=== PATIENT | male | born 1970 | race Two or more races ===

== ENCOUNTER 2025-01-17 22:54 | Emergency (ER) | payer SELFPAY ==
[~2025-01-17] VITALS: Ht 177.8 cm; Wt 100.3 kg
[2025-01-18 00:23] LABS: Urine Protein, UAD TRACE (Negative)
[2025-01-18] MEDS: ACETAMINOPHEN 500 MG TAB or CAP PO ONE (00:30)
[2025-01-18] MEDS: LIDOCAINE VISCOUS 2% 15ML UD PO ONE (00:30)
[2025-01-18] MEDS: MAALOX PLUS or MAALOX 30 ML PO ONE (00:30)
[2025-01-18 00:35] VITALS: O2SAT 97
[2025-01-18 00:41] LABS: Hematocrit 51.3 % (41.0-53.0); Hemoglobin 17.6 g/dL (13.5-17.5); Mean Corpuscular Hemoglobin 29.6 pg (28.0-32.0); Mean Corpuscular Volume 86.2 fL (80.0-100.0); Nucleated Red Blood Cells % 0.1 %
[2025-01-18 00:54] LABS: Albumin 4.7 g/dL (3.2-4.8); Anion Gap 9 (5-15); BUN/Creatinine Ratio 16.7 (10.0-20.0); Bilirubin, Total 1.1 mg/dL (0.2-1.0); Blood Urea Nitrogen 17 mg/dL (9-23); Calcium 9.5 mg/dL (8.7-10.4); Carbon Dioxide 30 mmol/L (20-31); Chloride 103 mmol/L (98-107); Potassium 3.8 mmol/L (3.5-5.1); Sodium 142 mmol/L (136-145); Total Protein 7.4 g/dL (5.7-8.2)
[2025-01-18 01:09] LABS: Lactic Acid w/Reflex 2.1 mmol/L (0.4-2.0)
[2025-01-18 01:10] LABS: Alanine Aminotransferase 198 U/L (7-40); Alkaline Phosphatase 118 U/L (46-116); Glucose 180 mg/dL (74-106); Lipase 65 U/L (12-53)
[2025-01-18] MEDS: SODIUM CHLORIDE 0.9% 500 ML IV ONE (01:41)
--- NOTE | 2025-01-18 01:50 | ED.PDOC ---
History of Present Illness HPI Comments 54-year-old male presents with chief complaint of abdominal pain. Patient endorses 3x hour history of epigastric abdominal pain, that began suddenly and unprovoked. Pain is an 8/10 in severity, with no prior history radiates, diffusely, throughout his entire abdomen. Is luis to full sensation and worse with breathing. Patient reports eating fish and popcorn as his most recent meal, is evening. He states states on not taking any pain medication prior to arrival. Sent injuries, travel, sick contact, or relevant GI history endorsed. Patient denies having any chest pain, shortness of breath, lightheadedness, nausea, vomiting, diarrhea, constipation, or further associated symptoms. Chief Complaint: Abdominal Pain Time Seen by MD: 23:50 Reviewed Notes: Nurses Notes, Medications, Allergies Allergies: Coded Allergies: NO KNOWN ALLERGIES (Unverified , 01/17/25) Information Source: Patient Mode of Arrival: Ambulatory Severity: Moderate Timing: Hours Duration: Since onset Prehospital treatment: None Review of Systems: REVIEW OF SYSTEMS: General: No fever, no chills, or fatigue HEENT: No sore throat, no earache, no congestion, no neck pain. Cardiac: No chest pain. No palpitations. Lungs: No shortness of breath, no cough. GI: Abdominal pain, no nausea, no vomiting, no diarrhea, no constipation : No dysuria, frequency, or urgency. No hematuria. Musculoskeletal: No joint pain , no joint swelling, no extremity edema. Skin: No rash, no itching. Neuro: No headache, no dizziness, no weakness Vital Signs Vital Signs Date Time Temp Pulse Resp B/P (MAP) Pulse Ox O2 Delivery O2 Flow Rate FiO2 01/18/25 04:05 98.3 85 16 140/72 (94) 96 98.3 01/18/25 01:34 Room Air 01/18/25 00:35 0 21 Physical Exam PHYSICAL EXAM: General: Awake, alert and oriented. No acute distress. Skin: Skin in warm, dry and intact. Appropriate color for ethnicity. HEENT: The head is normocephalic and atraumatic. Conjunctivae are clear without exudates or hemorrhage. Sclera is non-icteric. EOM are intact. No signs of nystagmus. Eyelids are normal in appearance without swelling or lesions. Oral mucosa is pink and moist Neck: The neck is supple with normal range of motion. No JVD. Cardiac: Heart rate and rhythm are normal. No murmurs, gallops, or rubs are auscultated. Respiratory: No signs of respiratory distress. Lung sounds are clear in all lobes bilaterally without rales, rhonchi, or wheezes. Abdominal: Epigastric tenderness. Remaining abdomen is soft, non-tender without distention, guarding or rigidity. Bowel sounds are present and normoactive in all four quadrants. No CVA tenderness. Extremities: Upper and lower extremities are atraumatic in appearance without deformity or edema. Neurological: The patient is awake, alert and oriented to person, place, and time with normal speech. Speech is clear. There is no facial asymmetry. Psychiatric: Appropriate mood and affect. Good judgement and insight. Past Medical History PAST MEDICAL HISTORY: DM, High Lipids Surgical History: Denies all surgeries Family History Family History: Unknown Social History Smoker: Non-Smoker Alcohol: Denies ETOH Use Drugs: Denies Drug Use Lives In: Home Was a procedure done? Was a procedure done?: No EKG EKG : Pulse Rate (adult): 79 [place]: Normal Cardiac Rhythm: NSR Block: None Hypertrophy: None ST: Normal Comments No STEMI Differential Dx Considerations may include: Differential diagnoses considered include: Abdominal aortic aneurysm, SC, esophageal rupture, intestinal obstruction, mesenteric ischemia, perforated viscus or solid organ rupture, CHF with hepatomegaly, pneumonia, abscess, appendicitis, biliary disease, diverticulitis, gastritis, gastroenteritis, hepatitis, hernia, inflammatory bowel disease, pancreatitis, peptic ulcer disease, urinary tract infection, ureteral colic, constipation, GERD, irritable syndrome, abdominal wall pain, nonspecific abdominal pain, herpes zoster, nephrolithiasis. X-Ray, Labs, Meds, VS Vital Signs Date Time Temp Pulse Resp B/P (MAP) Pulse Ox O2 Delivery O2 Flow Rate FiO2 01/18/25 04:05 98.3 85 16 140/72 (94) 96 98.3 01/18/25 01:52 79 01/18/25 01:34 89 20 96 Room Air 01/18/25 01:34 98.1 89 20 145/78 (100) 96 98.1 01/18/25 00:35 97 Room Air* 0 21 01/18/25 00:32 99.1 88 19 144/89 (107) 97 99.1 01/17/25 23:37 79 01/17/25 23:20 98.8 88 18 141/93 (109) 95 98.8 Lab Test 01/18/25 02:12 01/18/25 01:25 01/18/25 00:12 01/17/25 23:27 Range/Units Lactic Acid Level 1.5 2.1 *H 0.4-2.0 mmol/L Troponin I High Sensitivity < 3 L < 3 L </=54 ng/L White Blood Count 9.8 4.4-10.8 10^3/uL Red Blood Count 5.96 H 4.5-5.90 10^6/uL Hemoglobin 17.6 H 13.5-17.5 g/dL Hematocrit 51.3 41.0-53.0 % Mean Corpuscular Volume 86.2 80.0-100.0 fL Mean Corpuscular Hemoglobin 29.6 28.0-32.0 pg Mean Corpuscular Hemoglobin Concent 34.3 32.0-36.0 g/dL Red Cell Distribution Width 13.2 11.8-14.3 % Platelet Count 222 140-450 10^3/uL Mean Platelet Volume 8.4 6.9-10.8 fL Neutrophils (%) (Auto) 77.6 37.0-80.0 % Lymphocytes (%) (Auto) 13.4 10.0-50.0 % Monocytes (%) (Auto) 7.9 0.0-12.0 % Eosinophils (%) (Auto) 0.7 0.0-7.0 % Basophils (%) (Auto) 0.4 0.0-2.0 % Neutrophils # (Auto) 7.6 1.6-8.6 10 ^3/uL Lymphocytes # (Auto) 1.3 0.4-5.4 10 ^3/uL Monocytes # (Auto) 0.8 0-1.3 10 ^3/uL Eosinophils # (Auto) 0.1 0-0.8 10 ^3/uL Basophils # (Auto) 0 0-0.2 10 ^3/uL Nucleated Red Blood Cells 0.1 % Sodium Level 142 136-145 mmol/L Potassium Level 3.8 3.5-5.1 mmol/L Chloride Level 103 98-107 mmol/L Carbon Dioxide Level 30 20-31 mmol/L Anion Gap 9 5-15 Blood Urea Nitrogen 17 9-23 mg/dL Creatinine 1.02 0.700-1.30 mg/dL Glomerular Filtration Rate Calc 88 >90 mL/min BUN/Creatinine Ratio 16.7 10.0-20.0 Serum Glucose 180 H 74-106 mg/dL Calcium Level 9.5 8.7-10.4 mg/dL Total Bilirubin 1.1 H 0.2-1.0 mg/dL Aspartate Amino Transferase (AST) 252 H 13-40 U/L Alanine Aminotransferase (ALT) 198 H 7-40 U/L Alkaline Phosphatase 118 H 46-116 U/L Total Protein 7.4 5.7-8.2 g/dL Albumin 4.7 3.2-4.8 g/dL Lipase 65 H 12-53 U/L Urine Color Yellow Yellow Urine Clarity Clear Clear Urine pH 6.5 5.0-9.0 Urine Specific [place] 1.035 1.001-1.035 Urine Protein Trace H Negative Urine Ketones Negative Negative Urine Blood Negative Negative /uL Urine Nitrite Negative Negative Urine Bilirubin Negative Negative Urine Urobilinogen 8 H Negative mg/dL Urine Leukocyte Esterase Negative Negative /uL Urine RBC 2 0 - 3 /hpf Urine Microscopic WBC 1 0-3 /HPF Urine Squamous Epithelial Cells None seen <5 /hpf Urine Bacteria None seen None Seen /hpf Urine Glucose 4+ H Normal mg/dL Current Medications Medications (Trade) Dose Ordered Sig/Antonio Route Start Time Stop Time Status Last Admin Al Hydrox/Mg Hydrox/Simethicone (Maalox Plus) 30 ml ONCE ONCE PO 01/18/25 00:00 01/18/25 00:01 DC 01/18/25 00:30 Lidocaine HCl (Xylocaine 2% Viscous) 10 ml ONCE ONCE PO 01/18/25 00:00 01/18/25 00:01 DC 01/18/25 00:30 Acetaminophen (Tylenol Tablet Or Capsule) 1,000 mg ONCE ONCE PO 01/18/25 00:00 01/18/25 00:01 DC 01/18/25 00:30 Sodium Chloride 500 ml @ 500 mls/hr Q1H ONCE IV 01/18/25 01:30 01/18/25 02:29 DC 01/18/25 01:41 PATIENT: DAVIDSTACEY ACCT: [id number] UNIT: [id number] : 1970 LOC: ER ROOM / BED: / AGE / SEX: 54 / M ADM STATUS: REG ER SERVICE 0125 ORDERING PHYSICIAN: MARIELA GALINDO MD PROCEDURE(s): ABPLIV - CT AB PEL WITH IV CON ONLY REASON: epigastric Abdominal pain, elevated LFT ORDER NUMBER(s): [id number], ACCESSION NUMBER(s): [id number] Exam: CT CT AB PEL WITH IV CON ONLY History: epigastric Abdominal pain, elevated LFT COMPARISON: None Technique: Multidetector spiral CT of the abdomen and pelvis was performed from lung bases to pubic symphysis. Intravenous contrast was administered during this examination. Portal venous imaging was obtained. Axial, coronal and sagittal multiplanar reformats were performed by the technologist on a separate workstation. Radiation Dose : 1. Abdomen/Pelvis: CTDIvol 20.03 mGy, DLP 1243.58 mGy*cm. CONTRAST: Type of contrast: Omnipaque 300 Contrast injected: 100 ml Findings: Lung Bases: No acute or significant lung base finding. Normal heart size. No pleural or pericardial effusion. Liver: The liver is normal in size. Diffuse hepatic steatosis. No focal lesions. Normal hepatic vascular enhancement. Gallbladder and Biliary Tree: 2.5 cm peripherally calcified gallstone within the neck of the gallbladder. Spleen: Unremarkable Pancreas: The pancreas is normal in appearance without focal lesions or abnormal enhancement. Adrenal Glands: Unremarkable Kidneys: No evidence of nephrolithiasis or hydronephrosis. Mild multifocal bilateral renal cortical scarring. Bladder: Unremarkable Bowel: Small hiatal hernia. The stomach is grossly normal in appearance. Small bowel and colon are normal in caliber and distribution. The appendix is not visualized; however, no secondary findings of acute appendicitis identified. Ascites: Absent Lymphadenopathy: No mesenteric, retroperitoneal or periportal lymphadenopathy. Abdominal Wall and Mesentery: Unremarkable. Vasculature: The visualized abdominal aorta is normal in size and caliber. Abdominal and pelvic vessels demonstrate normal enhancement. Pelvic Organs: Unremarkable Musculoskeletal: No aggressive focal bony lesions, acute fractures or dislocation. Punctate sclerotic focus within the anterior right acetabulum likely represents a bone island. IMPRESSION: 1. Cholelithiasis. 2. Hepatomegaly. 3. Mild bilateral renal cortical scarring. Radiation optimization: All CT scans at this facility use at least one of these dose optimization techniques: automated exposure control mA and/or kV adjus tment per patient size (includes targeted exams where dose is matched to clinical indication) or iterative reconstruction. ATED BY: MAYURI MOSCOSO MD DICTATED DATE/TIME: 01/18/25331 SIGNED BY: MAYURI MOSCOSO MD SIGNED DATE/TIME: 01/18/25331 CC: Time of 1ST Reevaluation: 00:20 Reevaluation 1ST: Unchanged Patient Education/Counseling: Treatment, Need For Follow Up Family Education/Counseling: No Family Present SEPSIS Sepsis Screen Date sepsis recognized/suspect: Jan 18, 2025 Time Sepsis recognized/suspect: 35 Recent Procedure: No On Antibiotic Therapy: No Respiratory Rate >20: No Heart Rate >90: No Temp<36 C (96.8 F) or >38.3 C: No SBP <90 or MAP <65 mmHG: No New Acute Mental Status Change: No Is the patient on CPAP, BIPAP,: No Physician Orders Electrocardigram (01/18/25 00:55) Ct Ab Pel With Iv Con Only (01/18/25 01:25) Vital Signs Date Time Temp Pulse Resp B/P (MAP) Pulse Ox O2 Delivery O2 Flow Rate FiO2 01/18/25 04:05 98.3 85 16 140/72 (94) 96 98.3 01/18/25 01:52 79 01/18/25 01:34 89 20 96 Room Air 01/18/25 01:34 98.1 89 20 145/78 (100) 96 98.1 01/18/25 00:35 97 Room Air* 0 21 01/18/25 00:32 99.1 88 19 144/89 (107) 97 99.1 01/17/25 23:37 79 01/17/25 23:20 98.8 88 18 141/93 (109) 95 98.8 Laboratory Tests Test 01/18/25 00:12 01/18/25 02:12 Lactic Acid Level 2.1 mmol/L (0.4-2.0) *H 1.5 mmol/L (0.4-2.0) White Blood Count 9.8 10^3/uL (4.4-10.8) Departure 1 Departure Time of Disposition: 03:37 Impression: Primary Impression: Abdominal pain Additional Impressions: Cholelithiasis Elevated LFTs Disposition: 01 HOME / SELF CARE / HOMELESS Condition: Stable Additional Instructions: INSTRUCCIONES DE GRIFFIN DE Urgencias Instrucciones: Latasha atentamente todas las instrucciones proporcionadas en lior paquete. Hoy puede demostrar que tiene clculos biliares y que yves pruebas de funcin son anormales. Es muy importante que horace un seguimiento con el mdico de atencin primaria para chi evaluacin adicional y que regrese al departamento de emergencias si horton dolor empeora. Aunque le hayan dado el griffin del Departamento de Emergencias, esto no significa que tenga un "certificado de buena shelby". [] Hoy no se alvarado realizado ningn diagnstico definitivo para yves sntomas. Es posible que ests en proceso de desarrollar chi enfermedad grave. Es por eso que debe regresar al servicio de urgencias sin falta si presenta algn sntoma nuevo o que empeora (especialmente si yves sntomas incluyen dolor en el pecho, dificultad para respirar, dolor abdominal, fiebre, dolor de sheila, confusin, dificultad para sheldon o caminar). Tambin es muy importante que consulte a un mdico de atencin primaria dentro de los prximos 3 a 5 cortes para realizar un seguimiento. Si no puede conseguir chi siva, regrese al servicio de urgencias para chi nueva evaluacin. Clculos biliares: instrucciones de cuidado Descripcin general Ubicacin de la vescula biliar en el vientre con detalle de la vescula biliar con clculos biliares y conducto cstico bloqueado por clculo biliar. Los clculos biliares son piedras compuestas de colesterol y otras sustancias que se abram en la vescula biliar. La vescula biliar almacena la bilis, que ayuda al cuerpo a digerir los alimentos. Los clculos biliares tambin pueden formarse en el conducto biliar, el conducto que transporta la bilis desde la vescula biliar y el hgado hasta el intestino crenshaw. Los clculos biliares que impiden que la vescula se vace o se atascan en el conducto biliar pueden causar dolor e infeccin. A veces se forma un material espeso llamado "lodo" en lugar de clculos. Anon Raices puede causar los mismos problemas que los clculos biliares. Es posible que el mdico le haya recetado analgsicos. Es posible que necesite citas de seguimiento para realizar ms pruebas y recibir tratamiento. Si los problemas persisten, podra necesitar ciruga para extirparle la vescula biliar. El mdico lo alvarado examinado cuidadosamente, cleve podran surgir problemas ms adelante. Si nota algn problema o sntomas nuevos, busque atencin mdica de inmediato . El seguimiento es fundamental para horton tratamiento y seguridad. Asegrese de programar y acudir a todas yves citas, y llame a horton mdico si tiene algn problema. Anel es recomendable estar al tanto de los resultados de yves pruebas y llevar chi lista de los medicamentos que ema. Property Valuer puedes cuidarte en casa? Descansa hasta que te sientas mejor. Tenga cuidado con los medicamentos. Latasha y siga todas las instrucciones de la etiqueta. Si el mdico le recet un medicamento para el dolor, tmelo segn lo prescrito. Si no est tomando un analgsico recetado, pregntele a horton mdico si puede saúl nakita de venta yesenia. Evite los alimentos que causan sntomas, especialmente los grasosos. Estos pu speedy hacer que la vescula biliar se contraiga y causar dolor. Cundo debes pedir ayuda? Llame a horton mdico ahora o busque atencin mdica inmediata si: Ests vomitando. Tiene dolor abdominal nuevo o peor. Tienes fiebre. No puede evacuar heces ni gases. Preste atencin de cerca a los cambios en horton shelby y asegrese de comunicarse con horton mdico si tiene algn problema. Crditos para clculos biliares: Instrucciones de cuidado Actualizado al: 2023 Autor: Personal de [facility] Junta de revisin clnica Toda la educacin de [facility] es revisada por un equipo que incluye mdicos, enfermeras, profesionales avanzados, dietistas registrados y otros profesionales de la shelby. Pruebas de funcin heptica Descripcin general de la prueba Se utilizan algunos anlisis de mary para determinar si el hgado est daado o inflamado. Aunque estas pruebas ayudan al mdico a evaluar el funcionamiento del hgado, no pueden determinar si tiene hepatitis C. Pruebas que evalan la funcin heptica Horton mdico podra realizar pruebas para medir ciertas sustancias qumicas producidas por el hgado. Estas pruebas pueden ayudarle a evaluar el funcionamiento de horton hgado. Las pruebas pueden medir: Bilirrubina. Albmina. Protena srica total. Pruebas que detectan la inflamacin del hgado (estudios de enzimas hepticas) Horton hgado puede resultar daado si tiene niveles elevados de: Alanina aminotransferasa (ALT o SGPT). Aspartato aminotransferasa (AST o SGOT). Un nivel elevado de fosfatasa alcalina (FA) puede indicar un bloqueo de los conductos biliares. Por qu se hace Las pruebas de hgado se realizan cuando un historial mdico o un examen fsico sugieren que algo puede estar mal con horton hgado. Estas pruebas tambin pueden ayudar a diagnosticar infecciones. Por ejemplo, si las enzimas hepticas estn altas, se pueden realizar pruebas para determinar si tiene hepatitis. Si est tomando ciertos medicamentos, es posible que le realicen pruebas de hgado para verificar que el medicamento est funcionando o que no est daando horton hgado. Property Valuer prepararse En general, no es necesario hacer nada antes de esta prueba, a menos que horton mdico se lo indique. Property Valuer se hace Un profesional de la shelby utiliza chi aguja para saúl chi muestra de mary, generalmente del brazo. Resultados Normal Todos los niveles estn dentro del rango normal. Anormal [place]ita o ms niveles estn fuera del rango normal. Los resultados anormales en las pruebas de funcin heptica pueden indicar que el hgado est inflamado o no funciona correctamente. Anon Raices puede indicar chi infeccin viral. Crditos para pruebas de funcin heptica Actualizado al: 30 de 2023 Autor: Personal de [employer] ([email or web address]/[email or web address]/[email or web address]) Junta de revisrafia mullen ([email or web address]://www.[email or web address] [email or web address]/specialpages/legal/[email or web address]) Toda la educacin de [employer] es revisada por un equipo que incluye mdicos, enfermeras, profesionales avanzados, dietistas registrados y otros profesionales de la shelby. Comments 54-year-old male who presented to the emergency department with epigastric abdominal pain. Positive for cholelithiasis, liver function tests elevation without cholecystitis Patient was offered admission for further treatment, evaluation however he declined. Patient we will follow up with the primary care better promptly for re- evaluation and return to the emergency department with any worsening of his condition. I reviewed the following notes from the pt's past medical encounters: N/A The following tests were ordered, and results were reviewed by me: (See diagnostic results section) The following test were independently interpreted by me: N/A Additional information was gathered from interviewing the following independent historians: N/A I reviewed and agreed with the following test results read by other providers: N/A I discussed treatments and results with patient Decision regarding hospitalization or escalation of hospital level of care: Risks and benefits of admission for further treatment of patient's condition was considered however due to patient's stable condition patient will be discharged to follow up closely or return to care for worsening of condition or inability to follow up. Critical Care Note Critical Care Time?: No Stability Stability form required: No Heart Score Heart Score: Heart Score Response (Comments) Value History N/A 0 EKG N/A 0 Age N/A 0 Risk Factors N/A 0 Troponin N/A 0 Total 0 I personally scribed for MARIELA GALINDO MD ([email or web address]) on 01/18/25 at 01:50. Electronically submitted by David Land ([email or web address]). I personally scribed for MARIELA GALINDO MD ([email or web address]) on 01/18/25 at 01:52. Electronically submitted by David Land ([email or web address]). I personally scribed for MARIELA GALINDO MD ([email or web address]) on 01/18/25 at 01:52. Electronically submitted by David Land ([email or web address]). MARIELA GALINDO MD Jan 18, 2025 01:50
[2025-01-18] MEDS: IOHEXOL 300 MG/ML 100ML BOTTLE IJ ONE (01:57)
--- NOTE | 2025-01-18 03:34 | DVH ---
Exam: CT CT AB PEL WITH IV CON ONLY History: epigastric Abdominal pain, elevated LFT COMPARISON: None Technique: Multidetector spiral CT of the abdomen and pelvis was performed from lung bases to pubic s ymphysis. Intravenous contrast was administered during this examination. Portal venous imaging was o btained. Axial, coronal and sagittal multiplanar reformats were performed by the technologist on a [email or web address] workstation. Radiation Dose : 1. Abdomen/Pelvis: CTDIvol 20.03 mGy, DLP 1243.58 mGy*cm. CONTRAST: Type of contrast: Omnipaque 300 Contrast injected: 100 ml Findings: Lung Bases: No acute or significant lung base finding. Normal heart size. No pleural or pericardial effusion. Liver: The liver is normal in size. Diffuse hepatic steatosis. No focal lesions. Normal hepatic vascu lar enhancement. Gallbladder and Biliary Tree: 2.5 cm peripherally calcified gallstone within the neck of the gallblad reagan. Spleen: Unremarkable Pancreas: The pancreas is normal in appearance without focal lesions or abnormal enhancement. Adrenal Glands: Unremarkable Kidneys: No evidence of nephrolithiasis or hydronephrosis. Mild multifocal bilateral renal cortical scarring. Bladder: Unremarkable Bowel: Small hiatal hernia. The stomach is grossly normal in appearance. Small bowel and colon are no rmal in caliber and distribution. The appendix is not visualized; however, no secondary findings of a cute appendicitis identified. Ascites: Absent Lymphadenopathy: No mesenteric, retroperitoneal or periportal lymphadenopathy. Abdominal Wall and Mesentery: Unremarkable. Vasculature: The visualized abdominal aorta is normal in size and caliber. Abdominal and pelvic vess els demonstrate normal enhancement. Pelvic Organs: Unremarkable Musculoskeletal: No aggressive focal bony lesions, acute fractures or dislocation. Punctate sclerotic focus within the anterior right acetabulum likely represents a bone island. IMPRESSION: 1. Cholelithiasis. 2. Hepatomegaly. 3. Mild bilateral renal cortical scarring. Radiation optimization: All CT scans at this facility use at least one of these dose optimization jose luis hniques: automated exposure control mA and/or kV adjustment per patient size (includes targeted exam s where dose is matched to clinical indication) or iterative reconstruction.
[2025-01-18 04:05] VITALS: BP 140/72; PULSE 85; RESP 16; TEMP 98.3; O2SAT 96
--- NOTE | 2025-01-18 13:15 | ECG ---
[facility] Test Date: 2025-01-17 Test Time: 23:37:00 Pat Name: STACEY HERNANDEZ Department: ER Room: Gender: M System Administration Advisor: GILES : 1970 Requested By: MARIELA GALINDO Order Number: [id number] Reading MD: José Mcallister Measurements Intervals [place] Rate: 79 P: 42 MS: 157 QRS: 108 QRSD: 102 T: -18 QT: 367 QTc: 421 Interpretive Statements Sinus rhythm Left posterior fascicular block LVH by voltage Inferior infarct, age indeterminate Lateral leads are also involved Electronically Signed On 01-18-2025 19:33:39 PDT by José Mcallister Please click the below link to view image of tracing.
== END 2025-01-18 04:09 | disposition home or self-care (01) ==
LOC: ER 22:54
DX: K80.20 Calculus of gallbladder without cholecystitis without obstruction (principal); R79.89 Other specified abnormal findings of blood chemistry; E11.9 Type 2 diabetes mellitus without complications; E78.5 Hyperlipidemia, unspecified
CPT/HCPCS: 36415; 74177; 80053; 81001; 83605; 83690; 84484; 85025; 93005; 96360; 99285; J7040; Q9967